=== PATIENT | female | born 1955 | race Caucasian/White ===

== ENCOUNTER 2016-11-09 07:03 | Day surgery (SDC) | payer OTHER, MEDICARE ==
[~2016-11-09] VITALS: Ht 162.6 cm; Wt 62.5 kg
--- NOTE | ~2016-11-09 | OR ---
ADMIT: 11/09/2016 RM/LOC: [facility] MR#: [id number] [address] [address] LULÚ LUCIANO [address] [place] [id number] Operative/Delivery Room Report SEX: F AGE: 61 : 1955 SURGERY DATE: 11/09/2016 SURGEON: Rogelio Devlin MD PREOPERATIVE DIAGNOSIS: Basal cell carcinoma skin left nasal. POSTOPERATIVE DIAGNOSIS: Basal cell carcinoma skin left nasal. OPERATION: Excision basal cell carcinoma skin lesion with nasolabial rotation flap closure. ANESTHESIA: General oral endotracheal. BLOOD LOSS: Less than 5 mL. COMPLICATIONS: None. DESCRIPTION OF PROCEDURE: With the patient in supine position under general oral endotracheal anesthesia, head was turned slightly to the right. Left side of the nose examined. It was prepped with ChloraPrep, allowed 3 minutes to dry, and the patient was draped sterilely. The lesion involved the distal portion of the left nasal skin extending to within 3 mm of the alar rim with total dimensions of 15 x 10 mm in ovoid dimension. The skin of the left lateral nose and the nasolabial fold were inflated with Xylocaine with epinephrine 1:100,000. After good vasoconstriction, the lesion was excised using an oval incision extending vertically by 13 mm and horizontally by 16 mm surrounding the gross margins of the involved skin by at least 1 mm in all dimension. The incision was carried through the subcutaneous tissue to the cartilaginous layer. She had previous cartilage resection in the area. The excision included full-thickness skin to the subcutaneous tissue of the nasal mucosal layer. The incision did not penetrate intranasally. Margins superior, inferior, and anterior were then obtained by shaving 1 mm ellipse of skin from each of these margins and each of it was sent for histologic examination by frozen section. This revealed no evidence of involvement of the margins. A ADMIT: 11/09/2016 RM/LOC: [facility] MR#: [id number] [id number] [place], [place] [address] LULÚ LUCIANO [address] [place] [address] Operative/Delivery Room Report SEX: F AGE: 61 : 1955 nasolabial flap was then used to close the excision site. The flap measured 17 mm in length and it was excised from the nasolabial fold. It was rotated into position. Undermining was required to allow good closure of the donor site and the connecting flap, but there was good match of skin and the skin was sutured in position with 5-0 Prolene interrupted simple stitches. The donor site was closed with primary closure using interrupted simple 5-0 Prolene interspersed mattress and simple stitches. There was good hemostasis during and following the procedure. A cotton ball was coated. Bacitracin ointment placed in the left naris and the external surface was treated with bacitracin ointment. Band- Aids were not applied as she was sensitive to adhesives. She emerged from general anesthesia in the operating room and was transferred to the recovery in good condition. Rogelio Devlin MD/ juan JOB #: [id number] CC: Rogelio Devlin, Attending Physician Alie Pelayo, Family Physician
--- NOTE | 2016-11-12 07:11 | HP ---
ADMIT: 11/09/2016 RM/LOC: [facility] MR#: [id number] [address] [address] LULÚ LUCIANO [address] [place] [address] Pre-OP History and Physical SEX: F AGE: 61 : 1955 DATE OF SERVICE: HISTORY OF PRESENT ILLNESS: Lulú is 61 years old. She is admitted for excision of a basal cell carcinoma of the skin, left-sided nose. 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 Recent biopsy of the nose shows an infiltrating basal cell carcinoma. Treatment options have been discussed. Because of its location, repair may require rotation flap closure. Examination of margins will be performed at the time of excision and closure will be tailored to the necessity following the removal. We discussed the risks and postop course, she is in very good understanding. In light of her past history of multiple skin cancers and removal, she is admitted for surgical procedure. This will be performed under monitored anesthesia care and local anesthesia. MEDICATIONS: Prior to admission: 1. Humalog. 2. Levemir. 3. HCTZ. 4. Gabapentin. 5. Venlafaxine. 6. Pantoprazole. 7. Toprol. 8. Potassium. 9. Seroquel. 10.Keppra. 11.Zyrtec. 12.Benadryl. 13.Marizol. 14.Oxycodone. 15.Lomotil. 16.Tessalon Perles. 17.Cyclobenzaprine. 18.ProAir. ALLERGIES: MORPHINE, DARVOCET, BIAXIN, ULTRAM, SULFA AND CATGUT SUTURE. SENSITIVE TO TAPES AND BANDAGE. PAST MEDICAL HISTORY: Multiple surgeries includin. Eddie fundoplication. 2. Left carotid artery surgery. 3. Abdominal aorta bypass. 4. 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 5. Tonsillectomy. 6. Adenoidectomy. 7. Endoscopic sinus surgery. 8. Hysterectomy. 9. Appendectomy. 10.Tubal ligation. ADMIT: 11/09/2016 RM/LOC: [facility] MR#: [id number] [id number] [place], [place] [address] MUSTAP[place] Parveen [address] [place] [id number] Pre-OP History and Physical SEX: F AGE: 61 : 1955 11.Bilateral shoulder. REVIEW OF SYSTEMS: Positive for COPD, adult onset diabetes, hypertension, and seizure disorder. SOCIAL HISTORY: She drinks caffeine. She does use tobacco 1/2 pack per day. She does not drink alcohol. FAMILY HISTORY: No anesthetic complications. No coagulopathies. PHYSICAL EXAMINATION: GENERAL: A 61-year-old, very good historian. She is in no acute distress. Cooperative. HEENT: Pupils are equal. Conjunctivae clear. Ear canals are clear. TMs transparent, no effusion. Nose, mouth, pharynx clear. Antrostomies are patent. Mild dryness in the nasal membranes and oropharynx, but no lesions. No purulent discharge. Hypopharynx and larynx normal. NECK: No adenopathy. No neck masses including palpation of parotid salivary lymph node regions. LUNGS: Diminished breath sounds, but no wheeze, no rales. HEART: Rhythm regular. EXTREMITIES: No cyanosis. No edema. INTEGUMENT: Ulcerative skin lesion, left side nose, near alar rim. There was scarring of the nasal skin from previous resections. IMPRESSION: Basal cell carcinoma of skin, extensor aspect, distal, left side nose. PLAN: Resection with examination of margins for adequacy followed by skin graft or rotation flap closure. Rogelio Devlin MD/ juan JOB #: [id number] CC: Rogelio Devlin, Attending Physician UNKNOWN, Family Physician
== END 2016-11-09 15:35 | disposition home or self-care (01) ==
LOC: SSS 07:03
PROC: 0HX1XZZ Transfer Face Skin, External Approach (ICD-10-PCS; principal; 2016-11-09)
DX: L98.8 Other specified disorders of the skin and subcutaneous tissue (principal); L90.5 Scar conditions and fibrosis of skin; J45.909 Unspecified asthma, uncomplicated; I10 Essential (primary) hypertension; K21.9 Gastro-esophageal reflux disease without esophagitis; E11.9 Type 2 diabetes mellitus without complications; Z98.890 Other specified postprocedural states; Z88.5 Allergy status to narcotic agent; Z88.2 Allergy status to sulfonamides; Z79.899 Other long term (current) drug therapy